=== PATIENT | male | born 1995 | race Hispanic/Latino ===

== ENCOUNTER 2019-05-25 15:20 | Outpatient (CLI) | payer BC ==
--- NOTE | 2019-05-25 15:48 | ULT ---
THYROID ULTRASOUND: HISTORY: Abnormal thyroid function tests. COMPARISON: None. FINDINGS: There is homogeneous echotexture of the thyroid gland. No solid or cystic masses. Thyroid isthmus measures 0.27 cm. Right thyroid lobe measures 5.4 x 1.9 x 1.9 cm. Left thyroid lobe measures 1.7 x 1.4 x 4.8 cm. IMPRESSION: No solid or cystic masses in the thyroid gland. POS: PPP
== END 2019-05-25 15:21 | disposition home or self-care (01) ==
LOC: BICULT 15:20
PROVIDERS: ATTEND Internal Medicine
DX: E07.9 Disorder of thyroid, unspecified (principal)
CPT/HCPCS: 76536